=== PATIENT | female | born 1975 | race Caucasian/White ===

== ENCOUNTER 2024-02-22 09:37 | Outpatient (CLI) | payer OTHER ==
[2024-02-22 10:44] LABS: HEMATOCRIT 38.4 % (36.0-45.00); HEMOGLOBIN 12.8 g/dL (12.0-15.00); MEAN CELL VOLUME 89.4 fL (80.00-100.00); MEAN CORPUSCULAR HEMOGLOBIN 29.9 pg (27.00-32.0); MEAN CORPUSCULAR HGB CONC 33.4 g/dl (32.0-36.0); PLATELET COUNT 173 K/uL (150-450); RED BLOOD COUNT 4.29 M/uL (4.00-6.00); RED CELL DISTRIBUTION WIDTH 13.6 % (11.5-14.5)
[2024-02-22 11:11] LABS: URINE APPEARANCE Clear; URINE BILIRRUBIN Negative (NEGATIVE); URINE BLOOD Negative; URINE COLOR Yellow; URINE GLUCOSE Negative (NEGATIVE); URINE KETONE Trace (NEGATIVE); URINE LEUKOCYTE Trace; URINE NITRATE Negative; URINE PROTEIN Negative (NEGATIVE); URINE UROBILINOGEN 0.2 E.U./dl
[2024-02-22 11:16] LABS: URINE BACTERIA 292.4 uL (0.0-1933); URINE EPITHELIAL CELLS 6.9 uL (0.0-38.8); URINE RBC 16.4 uL (0.0-20.8); URINE WBC 2.8 uL (0.0-23.2)
[2024-02-22 12:02] LABS: ALBUMIN 3.7 gm/dL (3.4-5.0); BILIRUBIN TOTAL 0.46 mg/dL (0.3-1.2); CALCIUM 8.8 mg/dL (8.5-10.1); CREATININE SERUM 0.69 mg/dL (0.55-1.02); GFR 91.59; GLOBULINA 3.3 G/DL (2.4-3.5); POTASSIUM 3.99 mEq/L (3.5-5.1); T4 FREE 1.03 NG/ML (0.76-1.46); TSH 1.13 uIU/mL (0.358-3.74)
[2024-02-26 08:08] LABS: FOLLICLE STIMULATING HORMONE 3.9 mIU/mL (.); LEUTEINIZING HORMONE 7.1 mIU/mL (.)
== END 2024-02-22 09:40 | disposition home or self-care (01) ==
LOC: LAB 09:37
PROVIDERS: ATTEND Psychiatry & Neurology Neurology
DX: N92.6 Irregular menstruation, unspecified (principal); R73.03 Prediabetes; E55.9 Vitamin D deficiency, unspecified; E03.8 Other specified hypothyroidism; N91.2 Amenorrhea, unspecified; C50.011 Malignant neoplasm of nipple and areola, right female breast; N95.1 Menopausal and female climacteric states

== ENCOUNTER 2024-07-03 15:12 | Outpatient (CLI) | payer OTHER ==
[2024-07-03 15:28] LABS: ALBUMIN 3.7 gm/dL (3.4-5.0); BILIRUBIN TOTAL 0.32 mg/dL (0.3-1.2); CALCIUM 8.7 mg/dL (8.5-10.1); CREATININE SERUM 0.71 mg/dL (0.55-1.02); GFR 88.24; GLOBULINA 3.2 G/DL (2.4-3.5); POTASSIUM 4.1 mEq/L (3.5-5.1); TOTAL PROTEIN 6.9 gm/dL (6.4-8.2)
[2024-07-03 15:40] LABS: HEMATOCRIT 35.8 % (36.0-45.00); HEMOGLOBIN 12.4 g/dL (12.0-15.00); MEAN CELL VOLUME 87.2 fL (80.00-100.00); MEAN CORPUSCULAR HEMOGLOBIN 30.1 pg (27.00-32.0); MEAN CORPUSCULAR HGB CONC 34.6 g/dl (32.0-36.0); PLATELET COUNT 175 K/uL (150-450); RED CELL DISTRIBUTION WIDTH 13.7 % (11.5-14.5)
== END 2024-07-03 15:13 | disposition home or self-care (01) ==
LOC: LAB 15:12
PROVIDERS: ATTEND Internal Medicine
DX: C50.811 Malignant neoplasm of overlapping sites of right female breast (principal)

== ENCOUNTER 2024-11-12 08:20 | Outpatient (CLI) | payer OTHER ==
[2024-11-12 09:12] LABS: BASO % 0.6 % (0.1-1.2); EOS # 0.13 (0.04-0.54); EOS % 2.8 % (0.7-7.0); LYMPH # 1.55 (1.18-3.74); LYMPH % 32.9 % (19.3-53.1); MEAN PLATELET VOLUME 11.50 fl (9.4-12.4); MONO # 0.24 (0.24-0.82); MONO % 5.1 % (4.7-12.5); NEUT # 2.75 (1.56-6.13); NEUT % 58.4 % (34.0-71.1); RED CELL DISTRIBUTION WIDTH 12.3 % (11.6-14.4)
[2024-11-12 09:27] LABS: URINE APPEARANCE Cloudy; URINE BILIRRUBIN Negative (NEGATIVE); URINE BLOOD Negative; URINE COLOR Yellow; URINE GLUCOSE Negative (NEGATIVE); URINE KETONE Negative (NEGATIVE); URINE LEUKOCYTE Negative; URINE NITRATE Negative; URINE PROTEIN Negative (NEGATIVE); URINE UROBILINOGEN 0.2 E.U./dl
[2024-11-12 09:31] LABS: URINE BACTERIA 69.5 uL (0.0-1933); URINE EPITHELIAL CELLS 6.8 uL (0.0-38.8); URINE RBC 14.3 uL (0.0-20.8)
[2024-11-12 09:54] LABS: URINE CAST 0.00 uL (0.0-1.40); URINE WBC 0.6 uL (0.0-23.2)
[2024-11-12 10:13] LABS: ALT/SGPT 15.0 U/L (12-78); AST/SGOT 12.0 U/L (15-37); BILIRUBIN TOTAL 0.54 mg/dL (0.3-1.2); BUN CREA RATIO 14.0 (7.0-25.0); CHOL HDL RATIO 3.3 (0-5.0); CREATININE SERUM 0.76 mg/dL (0.55-1.02); GFR 81.57; GLOBULINA 3.1 G/DL (2.4-3.5); GLUCOSE FASTING 90.0 mg/dL (65-100); HDL 53.0 mg/dl (40-60); LDH 168.0 U/L (84-246); LDL 97.0 mg/dl (0-130); OSMOLALITY SERUM 282.0 MOSM/KG (275-295); T4 TOTAL 7.44 UG/DL (4.8-13.9); TSH 1.37 uIU/mL (0.358-3.74); VLDL 24.0 (0-39)
[2024-11-12 11:00] LABS: T3 TOTAL 1.03 ng/ml (0.846-2.02); VITAMIN D3 25 HYDROXY 62.22 ng/ml (30-120)
[2024-11-13 09:09] LABS: CA 15-3 6.4 U/mL (0.0-25.0); ESTRADIOL SERUM 353.0 pg/mL (.)
== END 2024-11-12 08:25 | disposition home or self-care (01) ==
LOC: LAB 08:20
PROVIDERS: ATTEND Internal Medicine
DX: D50.8 Other iron deficiency anemias (principal); N39.0 Urinary tract infection, site not specified; E07.89 Other specified disorders of thyroid; I11.9 Hypertensive heart disease without heart failure; E78.3 Hyperchylomicronemia; E55.9 Vitamin D deficiency, unspecified; K90.49 Malabsorption due to intolerance, not elsewhere classified; N95.1 Menopausal and female climacteric states; N95.8 Other specified menopausal and perimenopausal disorders; L68.0 Hirsutism; C50.811 Malignant neoplasm of overlapping sites of right female breast